=== PATIENT | female | born 1995 | race Two or more races ===

== ENCOUNTER 2018-12-01 17:45 | Emergency (ER) | payer MEDICAID ==
[~2018-12-01] VITALS: Ht 167.6 cm; Wt 70.3 kg
--- NOTE | 2018-12-01 18:00 | NUR ---
PT BIB SELF SLIPPED AND FALL IN SHOWER YESTERDAY - C/O RIGHT RIB PAIN NO LOC. ALERT AND ORIENTED X 4, VERBALLY RESPONSIVE AND ABLE TO MAKE NEEDS KNOWN. ON ROOM AIR, BREATHING EVENLY AND UNLABORED. KEPT COMFORTABLE. WILL CONTINUE TO MONITOR ACCORDINGLY.
[2018-12-01] MEDS ORDERED: HYDROCODONE/APAP 5/325MG 1 EACH TABLET PO ONE (18:30)
[2018-12-01] MEDS ORDERED: HYDROCODONE/APAP 5/325MG 1 EACH TABLET ONE (18:30)
[2018-12-01 19:12] VITALS: BP 121/67
--- NOTE | 2018-12-01 19:12 | NUR ---
Patient discharged to home in stable condition. Written and verbal after care instructions given. Patient verbalizes understanding of instruction.
== END 2018-12-01 19:12 | disposition home or self-care (01) ==
LOC: ER 17:49
DX: S20.211A Contusion of right front wall of thorax, initial encounter (principal); F10.10 Alcohol abuse, uncomplicated; Y90.9 Presence of alcohol in blood, level not specified; W01.0XXA Fall on same level from slipping, tripping and stumbling without subsequent striking against object, initial encounter; Y93.89 Activity, other specified; Y92.89 Other specified places as the place of occurrence of the external cause; Y99.8 Other external cause status
CPT/HCPCS: 71100-TC

== ENCOUNTER 2019-03-27 19:13 | Emergency (ER) | payer MEDICAID ==
[~2019-03-27] VITALS: Ht 170.2 cm; Wt 64.0 kg
--- NOTE | 2019-03-27 19:29 | NUR ---
BIBSELF C/O "FLU-LIKE" SYMPTOMS X 2 DAYS. PATIENT A/OX4, BREATHING EVEN AND UNLABORED, NO SOB NOTED. AT BEDSIDE FOR EVAL.
[2019-03-27] MEDS ORDERED: ACETAMINOPHEN 650 MG/20.3 ML UDC ONE (19:42)
--- NOTE | 2019-03-27 19:46 | NUR ---
ENDORSED TO [facility] FOR [facility].
[2019-03-27] MEDS ORDERED: ACETAMINOPHEN 650 MG/20.3 ML UDC PO ONE (20:00)
--- NOTE | 2019-03-27 21:00 | NUR ---
Patient discharged to home in stable condition. Written , rx and verbal after care instructions given. Patient verbalizes understanding of instruction.
[2019-03-27 21:15] VITALS: BP 109/72
== END 2019-03-27 21:16 | disposition home or self-care (01) ==
LOC: ER 19:14
DX: J06.9 Acute upper respiratory infection, unspecified (principal); F17.200 Nicotine dependence, unspecified, uncomplicated; F10.10 Alcohol abuse, uncomplicated; Y90.9 Presence of alcohol in blood, level not specified
CPT/HCPCS: 71045-TC; 87400

== ENCOUNTER 2022-08-06 20:11 | Emergency (ER) | payer MEDICAID ==
[~2022-08-06] VITALS: Ht 167.6 cm; Wt 59.9 kg
--- NOTE | 2022-08-06 21:31 | NUR ---
BIBSELF C/O VAGINAL PAIN X 2 DAYS
[2022-08-06] MEDS ORDERED: MUPI22OI2 TP (21:48)
[2022-08-06] MEDS ORDERED: SULF1TAB48 PO (21:48)
[2022-08-06 21:51] VITALS: BP 136/67
--- NOTE | 2022-08-06 21:51 | NUR ---
Patient discharged to home in stable condition. Written and verbal after care instructions given. Patient verbalizes understanding of instruction. rx given
== END 2022-08-06 21:52 | disposition home or self-care (01) ==
LOC: ER 20:13
DX: N73.0 Acute parametritis and pelvic cellulitis (principal); Z60.2 Problems related to living alone